=== PATIENT | male | born 1970 | race Two or more races ===

== ENCOUNTER 2023-05-20 08:42 | Day surgery (SDC) | payer BC ==
[2023-05-15 09:23] LABS: Urine Epithelial Cast None Seen /hpf (<5)
[2023-05-15 09:36] LABS: Urine Bacteria NONE SEEN /hpf (None Seen); Urine Blood Negative /uL (Negative); Urine Clarity Clear (Clear); Urine Color Yellow (Yellow); Urine Protein, UAD Negative (Negative); Urine Specific Gravity 1.014 (1.001-1.035); Urine Urobilinogen Normal (Negative); Urine WBC 1 /hpf (0 - 3)
[2023-05-15 09:38] LABS: Basophils # (auto) 0.1 10 ^3/uL (0-0.2); Basophils % (auto) 1.5 % (0.0-2.0); Eosinophils # (auto) 0.1 10 ^3/uL (0-0.8); Hematocrit 49.6 % (41.0-53.0); Hemoglobin 16.4 g/dL (13.5-17.5); Lymphocytes # (auto) 1.9 10 ^3/uL (0.4-5.4); Lymphocytes % (auto) 52.6 % (10.0-50.0); Mean Corpuscular Hemoglobin 31.3 pg (28.0-32.0); Mean Corpuscular Hgb Conc. 33.1 g/dL (32.0-36.0); Mean Corpuscular Volume 94.6 fL (80.0-100.0); Monocytes # (auto) 0.4 10 ^3/uL (0-1.3); Monocytes % (auto) 10.2 % (0.0-12.0); Neutrophils # (auto) 1.2 10 ^3/uL (1.6-8.6); Neutrophils % (auto) 32.7 % (37.0-80.0); Nucleated Red Blood Cells % 0.4 %; Red Blood Cells 5.25 10^6/uL (4.5-5.90); Red Cell Distribution Width 14.2 % (11.8-14.3); White Blood Cell 3.5 10^3/uL (4.4-10.8)
[2023-05-15 09:51] LABS: INR 1.04 (0.9-1.15); Partial Thromboplastin Time 28.7 SEC (24.5-34.5); Prothrombin Time 10.9 sec (9.3-11.8)
[2023-05-15 10:48] LABS: Alanine Aminotransferase 27 U/L (7-40); Albumin 4.3 g/dL (3.2-4.8); Alkaline Phosphatase 57 U/L (46-116); Anion Gap 5 (5-15); Aspartate Aminotransferase 23 U/L (13-40); BUN/Creatinine Ratio 8.7 (10.0-20.0); Blood Urea Nitrogen 10 mg/dL (9-23); Calcium 9.6 mg/dL (8.5-10.1); Carbon Dioxide 27 mmol/L (20-30); Chloride 108 mmol/L (98-107); Glucose 101 mg/dL (74-106); Potassium 4.7 mmol/L (3.5-5.1); Sodium 140 mmol/L (136-145)
[2023-05-15 10:49] LABS: Bilirubin, Total 0.8 mg/dL (0.2-1.0); Total Protein 6.9 g/dL (5.7-8.2)
[~2023-05-20] VITALS: Ht 170.2 cm; Wt 100.7 kg
[2023-05-20] MEDS ORDERED: ceFAZolin 2 GM/D5W100ml 100 ML IV ONE (09:17)
[2023-05-20] MEDS ORDERED: LIDOCAINE W/ EPINEPHRINE 1% 20ML VIAL ONE (09:33)
[2023-05-20] MEDS ORDERED: SUCCINYLCHOLINE CHLORIDE 20 MG/ML 10ML VIAL IV ONE (09:38)
[2023-05-20] MEDS ORDERED: fentaNYL CITRATE 100 MCG/2 ML VL ONE ×2 (09:42→10:30)
[2023-05-20] MEDS ORDERED: PROPOFOL 10 MG/ML 20 ML IV ONE (09:42)
[2023-05-20] MEDS ORDERED: MEPERIDINE HCL (50 MG/ML) 1 ML VIAL ONE (10:17)
[2023-05-20] MEDS ORDERED: DexAMETHasone SOD PHOS 10MG/1ML VIAL INJ ONE (10:17)
[2023-05-20] MEDS ORDERED: ONDANSETRON HCL 4 MG/2 ML VIAL ONE (10:17)
[2023-05-20] MEDS ORDERED: LIDOCAINE 2% JELLY 11ml (GLYDO) ONE (10:21)
[2023-05-20] MEDS ORDERED: ePHEDrine SULFATE 50 MG/ML AMP ONE (10:25)
[2023-05-20 10:44] VITALS: O2SAT 100
[2023-05-20 10:45] VITALS: TEMP 97.7
[2023-05-20] MEDS ORDERED: MEPERIDINE HCL (25 MG/ML) 1ML VIAL IV PRN (11:00)
[2023-05-20] MEDS ORDERED: HYDROmorphone HCL 2 MG/ML VL/or syr IV PRN (11:00)
[2023-05-20] MEDS ORDERED: ONDANSETRON HCL 4 MG/2 ML VIAL IV PRN (11:00)
[2023-05-20 11:30] VITALS: BP 103/56; PULSE 77; RESP 21; O2SAT 94
== END 2023-05-20 11:59 | disposition home or self-care (01) ==
LOC: SUR 08:42
PROVIDERS: ATTEND Surgery
DX: K64.8 Other hemorrhoids (principal); F17.210 Nicotine dependence, cigarettes, uncomplicated; Z98.890 Other specified postprocedural states
CPT/HCPCS: 36415; 46221; 80053; 81001; 85025; 85610; 85730; 86850; 86900; 86901; J0330; J1100; J2175; J2405; J2704; J3010

== ENCOUNTER 2023-12-03 12:12 | Emergency (ER) | payer BC, MEDICAID ==
[~2023-12-03] VITALS: Ht 170.2 cm; Wt 10.0 kg
[2023-12-03] MEDS: KETOROLAC TROMETH 60MG/2ML VIAL IM ONE (15:05)
[2023-12-03] MEDS ORDERED: IBUP-1456 PO (15:15)
[2023-12-03 15:22] VITALS: BP 127/74; PULSE 77; RESP 17; TEMP 98; O2SAT 97
[2023-12-03] MEDS ORDERED: LIDO5PAD12 EX (15:22)
== END 2023-12-03 15:25 | disposition home or self-care (01) ==
LOC: ER 12:12
DX: S83.8X2A Sprain of other specified parts of left knee, initial encounter (principal); M17.12 Unilateral primary osteoarthritis, left knee; Z79.899 Other long term (current) drug therapy; X58.XXXA Exposure to other specified factors, initial encounter; Y93.89 Activity, other specified; Y92.89 Other specified places as the place of occurrence of the external cause; Y99.8 Other external cause status
CPT/HCPCS: 73562; 96372; 99283; J1885